=== PATIENT | female | born 1990 | race Caucasian/White ===

== ENCOUNTER 2016-07-16 20:30 | Emergency (ER) | payer MEDICARE, MEDICAID ==
[2016-07-16 21:52] VITALS: BMI 28.8
[2016-07-16 21:56] VITALS: RESP 16; TEMP 98.2; O2SAT 100
--- NOTE | 2016-07-16 21:56 | ED PDOC ---
Arrival/HPI - General Time Seen by Provider: 07/16/16 21:42 - History of Present Illness Narrative History of Present Illness (Text): 25F c/o left shoulder pain that started when she woke up this morning. she says she slept on the floor last night bc of her back. she did not take any medicine today and says the pain feels better now, about 3/10. she reports hx of tourette syndrome denies other pmh. Past Medical History - Infectious Disease Hx of Infectious Diseases: None - Tetanus Immunization Tetanus Immunization: Unknown - Cardiac Hx Cardiac Arrhythmia: Yes (SVT) - Neurological Hx Neurological Disorder: Yes (TOURETTES) - Hematological/Oncological Hx Blood Transfusions: No Hx Blood Transfusion Reaction: No - Musculoskeletal/Rheumatological Hx Falls: No - Gastrointestinal Hx Gastrointestinal Disorders: Yes Hx Gall Bladder Disease: Yes (GALLSTONES) - Psychiatric Hx Depression: No Hx Emotional Abuse: No Hx Physical Abuse: No Hx Substance Use: No - Surgical History Hx Hysterectomy: No - Anesthesia Hx Anesthesia Reactions: No Hx Malignant Hyperthermia: No - Suicidal Assessment Feels Threatened In Home Enviroment: No Family/Social History Family/Social History: Other (nc) Smoking Status: no Hx Alcohol Use: No Hx Substance Use: No Hx Substance Use Treatment: No Allergies/Home Meds Allergies/Adverse Reactions: Allergies pineapple Allergy (Verified 10/22/15 01:27) RASH coconut Adverse Reaction (Verified 10/22/15 07:17) RASH Review of Systems - Review of Systems Constitutional: absent: Fevers Respiratory: Cough (recent cold sx). absent: SOB Cardiovascular: absent: Chest Pain Gastrointestinal: absent: Abdominal Pain, Nausea, Vomiting Neurological: absent: Focal Weakness Physical Exam Vital Signs Temp Pulse Resp BP Pulse Ox 07/16/16 20:31 98.2 F 71 16 127/74 100 Appearance: Positive for: Well-Appearing, Non-Toxic, Comfortable Pain Distress: None Mental Status: Positive for: Alert and Oriented X 3 - Systems Exam Head: Present: Atraumatic Pupils: Present: PERRL Respiratory/Chest: No: Accessory Muscle Use Upper Extremity: Present: Normal Inspection, Normal ROM, NORMAL PULSES, Tenderness (over superior and posterior shoudler), Neurovascularly Intact, Capillary Refill < 2s, Other (specifically left shouler has normal ROM and strength. nl sensation in axillary n dist. ). No: Cyanosis, Edema, Swelling, Erythema, Deformity Neurological: Present: GCS=15, Motor Func Grossly Intact, Normal Sensory Function Psychiatric: Present: Alert, Oriented x 3 Medical Decision Making - RAD Interpretation Radiology Orders: 07/16/16 21:52 SHOULDER LEFT [RAD] Stat - Medication Orders Current Medication Orders: Discontinued Medications Ibuprofen (Motrin Tab) 600 mg PO STAT STA Stop: 07/16/16 21:53 Disposition/Present on Arrival - Present on Arrival Any Indicators Present on Arrival: No History of DVT/PE: No History of Uncontrolled Diabetes: No Urinary Catheter: No History Surgical Site Infection Following: None - Disposition Have Diagnosis and Disposition been Completed?: Yes Diagnosis: Shoulder pain Disposition: HOME/ ROUTINE Disposition Time: 22:51 Patient Problems: Current Active Problems Problem Status Onset Shoulder pain Acute Condition: GOOD Additional Instructions: Please follow up with your doctor. Return to the ER for any worsening symptoms or for any other concerns. Prescriptions: Naproxen [Naprosyn] 500 mg PO Q12H PRN #10 tablet PRN Reason: Pain, Moderate (4-7) Referrals: Zoe Peter, [Primary Care Provider] - Follow up with primary
[2016-07-16 23:22] VITALS: BP 124/70; PULSE 67
--- NOTE | 2016-07-17 08:39 | RAD ---
PROCEDURE: Radiographs of the Left Shoulder HISTORY: pain COMPARISON: None available FINDINGS: BONES: No acute displaced fracture. The distal clavicle and underlying ribs appear intact. JOINTS: No acute dislocation. SOFT TISSUES: Soft tissues appear unremarkable. No evidence of radiopaque foreign body. IMPRESSION: No acute displaced fracture or dislocation evident. If symptoms persist or if there is continued clinical concern, x-ray follow-up in 7-10 days should be considered.
== END 2016-07-16 23:19 | disposition home or self-care (01) ==
LOC: ED 20:30
DX: M25.512 Pain in left shoulder (principal)

== ENCOUNTER 2016-07-17 10:13 | Emergency (ER) | payer MEDICARE, MEDICAID ==
[2016-07-17 10:17] VITALS: BMI 25.8
[2016-07-17 10:20] VITALS: RESP 18; TEMP 97.8; O2SAT 98
--- NOTE | 2016-07-17 11:15 | ED PDOC ---
Arrival/HPI - General Chief Complaint: Upper Extremity Problem/Injury Time Seen by Provider: 07/17/16 11:01 Historian: Patient - History of Present Illness Narrative History of Present Illness (Text): 07/17/16 11:47 25-year-old female presents today with a 2 day history of left-sided neck pain. Patient states she was sleeping on the floor and woke up with pain to the left side of the neck. She denies numbness weakness or tingling in the extremity. She describes it as sharp pain to the left side of the neck worse with movement of the neck and movement of the left shoulder. No chest pain or shortness of breath. No vomiting or diarrhea. No medications have been taken for pain at home. Patient rates the pain as a 9 out of 10. Time/Duration: Other (2 days) Symptom Onset: Gradual Symptom Course: Worsening Quality: Aching, Stabbing Severity Level: 9 Past Medical History - Provider Review Nursing Documentation Reviewed: Yes - Travel History Have you recently traveled outside [place] w/in the past 3 mons?: Yes - Infectious Disease Hx of Infectious Diseases: None - Tetanus Immunization Tetanus Immunization: Unknown - Cardiac Hx Cardiac Arrhythmia: Yes (SVT) - Neurological Hx Neurological Disorder: Yes (TOURETTES) - Hematological/Oncological Hx Blood Transfusions: No Hx Blood Transfusion Reaction: No - Musculoskeletal/Rheumatological Hx Falls: No - Gastrointestinal Hx Gastrointestinal Disorders: Yes Hx Gall Bladder Disease: Yes (GALLSTONES) - Psychiatric Hx Depression: No Hx Emotional Abuse: No Hx Physical Abuse: No Hx Substance Use: No - Surgical History Hx Cholecystectomy: Yes Hx Hysterectomy: No Other/Comment: Cardiac ablation. L knee surgery - Anesthesia Hx Anesthesia: Yes Hx Anesthesia Reactions: No Hx Malignant Hyperthermia: No - Suicidal Assessment Feels Threatened In Home Enviroment: No Family/Social History - Physician Review Nursing Documentation Reviewed: Yes Family/Social History: Unknown Family HX Smoking Status: Heavy Smoker > 10 Cigarettes Daily Hx Alcohol Use: No Hx Substance Use: No Hx Substance Use Treatment: No Allergies/Home Meds Allergies/Adverse Reactions: Allergies pineapple Allergy (Verified 10/22/15 01:27) RASH coconut Adverse Reaction (Verified 10/22/15 07:17) RASH Review of Systems - Review of Systems Constitutional: absent: Fatigue, Fevers Respiratory: absent: SOB, Cough Cardiovascular: absent: Chest Pain, Palpitations Gastrointestinal: absent: Abdominal Pain, Nausea, Vomiting Genitourinary Female: absent: Dysuria, Frequency Musculoskeletal: Arthralgias, Neck Pain. absent: Back Pain Skin: absent: Rash, Pruritis Psychiatric: absent: Anxiety, Depression Physical Exam Vital Signs Reviewed: Yes Vital Signs Temp Pulse Resp BP Pulse Ox 07/17/16 11:27 69 18 114/71 98 07/17/16 10:19 97.8 F 75 18 116/75 98 Temperature: Afebrile Blood Pressure: Normal Pulse: Regular Respiratory Rate: Normal Appearance: Positive for: Well-Appearing, Non-Toxic, Comfortable Pain Distress: None Mental Status: Positive for: Alert and Oriented X 3 - Systems Exam Head: Present: Atraumatic Mouth: Present: Moist Mucous Membranes Neck: Present: Normal Range of Motion, Paraspinal Tenderness (+ left sided trapezius and paraspinal tenderness. ), Trachea Midline. No: MIDLINE TENDERNESS Respiratory/Chest: Present: Clear to Auscultation, Good Air Exchange. No: Respiratory Distress, Accessory Muscle Use Cardiovascular: Present: Regular Rate and Rhythm, Normal S1, S2. No: Murmurs Abdomen: No: Tenderness Upper Extremity: Present: Normal ROM, Neurovascularly Intact, Capillary Refill < 2s Lower Extremity: Present: Normal ROM Neurological: Present: GCS=15, Speech Normal Skin: Present: Warm, Dry, Normal Color. No: Rashes Psychiatric: Present: Alert, Oriented x 3 Medical Decision Making ED Course and Treatment: 07/17/16 11:45 Patient nontoxic well-appearing in no distress with stable vital signs. Complaining of left-sided neck pain 2 days Toradol Flexeril Patient reassessment: Feeling better with medications ambulating with a steady gait. Muscle strength 5 out of 5 bilaterally. I advised to followup with the orthopedist within the next 2 days. Return if symptoms worsen persist or new symptoms develop Patient verbalizes understanding of discharge instructions and need for immediate followup. Impression: Neck pain, strain Motrin every 6 hours as needed for pain Flexeril one tablet every 8 hours as needed for muscle spasms: May cause drowsiness Followup with the orthopedist within the next 2 days Followup with primary care physician within the next 2 days Return if symptoms worsen persist or if new symptoms develop - Medication Orders Current Medication Orders: Discontinued Medications Cyclobenzaprine HCl (Flexeril) 10 mg PO STAT STA Stop: 07/17/16 11:15 Ketorolac Tromethamine (Toradol) 60 mg IM STAT STA Stop: 07/17/16 11:15 Disposition/Present on Arrival - Present on Arrival Any Indicators Present on Arrival: No History of DVT/PE: No History of Uncontrolled Diabetes: No Urinary Catheter: No History of Decub. Ulcer: No History Surgical Site Infection Following: None - Disposition Have Diagnosis and Disposition been Completed?: Yes Diagnosis: Neck pain Disposition: HOME/ ROUTINE Disposition Time: 11:15 Patient Plan: Discharge Patient Problems: Current Active Problems Problem Status Onset Neck pain Acute Condition: GOOD Discharge Instructions (ExitCare): Muscle Spasm (ED) Additional Instructions: Motrin every 6 hours as needed for pain Flexeril one tablet every 8 hours as needed for muscle spasms: May cause drowsiness Followup with the orthopedist within the next 2 days Followup with primary care physician within the next 2 days Return if symptoms worsen persist or if new symptoms develop Prescriptions: Cyclobenzaprine [Cyclobenzaprine HCl] 10 mg PO Q8 #10 tab Ibuprofen [Motrin] 600 mg PO Q6H PRN #20 tab PRN Reason: pain/fever reduction Referrals: Maria E Ching MD [Primary Care Provider] - Follow up with primary Samson Molina DO [Staff Provider] - Follow up with primary Forms: WORK NOTE
[2016-07-17 11:27] VITALS: BP 114/71; PULSE 69
== END 2016-07-17 12:01 | disposition home or self-care (01) ==
LOC: ED 10:13
DX: M54.2 Cervicalgia (principal)
CPT/HCPCS: 96372; 99284; J1885